=== PATIENT | female | born 1980 | race Caucasian/White ===

== ENCOUNTER 2022-10-17 10:36 | Outpatient (CLI) | payer OTHER, SELFPAY ==
--- NOTE | ~2022-10-17 | MM_ITS ---
EXAMINATION: MM scrn omayra implant BI w gregg HISTORY: Screening mammogram TECHNIQUE: Craniocaudal and mediolateral oblique 3-D tomosynthesis images with implant displacement a nd synthetic 2-D images were generated. Craniocaudal and mediolateral oblique views of the breasts wi thout implant displacement were obtained using full field digital mammography. CAD analysis was submi tted and interpreted. COMPARISON: 03/14/2018 BREAST PARENCHYMAL COMPOSITION: There are scattered areas of fibroglandular density. FINDINGS: There is no evidence of suspicious mass, calcification, or architectural distortion to sugg est malignancy in either breast. There has been no suspicious interval change. IMPRESSION: 1. No mammographic evidence of malignancy. 2. Recommend routine screening mammography in one year. BI-RADS Category 1: Negative Reviewed, dictated and finalized at location A. H COORDINATOR
== END 2022-10-17 10:37 | disposition home or self-care (01) ==
LOC: ANHIMG 10:38
PROVIDERS: PCP Physician Assistant; Visit Provider Obstetrics & Gynecology
DX: Z12.31 Encounter for screening mammogram for malignant neoplasm of breast (principal); Z98.82 Breast implant status
CPT/HCPCS: 77063; 77067

== ENCOUNTER 2024-04-29 14:10 | Outpatient (CLI) | payer OTHER, SELFPAY ==
--- NOTE | ~2024-04-29 | MM_ITS ---
EXAMINATION: MM scrn omayra implant BI w gregg HISTORY: Screening mammogram TECHNIQUE: Craniocaudal and mediolateral oblique 3-D tomosynthesis images with implant displacement a nd synthetic 2-D images were generated. Craniocaudal and mediolateral oblique views of the breasts wi thout implant displacement were obtained using full field digital mammography. CAD analysis was submi tted and interpreted. COMPARISON: Comparison to multiple prior studies sequentially, with oldest reviewed study dated 04/2022. BREAST PARENCHYMAL COMPOSITION: The breasts are heterogeneously dense, which may obscure small masses . FINDINGS: There is no evidence of suspicious mass, calcification, or architectural distortion to sugg est malignancy in either breast. There has been no suspicious interval change. IMPRESSION: 1. No mammographic evidence of malignancy. 2. Recommend routine screening mammography in one year. BI-RADS Category 1: Negative Reviewed, dictated and finalized at location B.
== END 2024-04-29 14:11 | disposition home or self-care (01) ==
LOC: ANHIMG 14:11
PROVIDERS: PCP Physician Assistant; Visit Provider Obstetrics & Gynecology
DX: Z12.31 Encounter for screening mammogram for malignant neoplasm of breast (principal)
CPT/HCPCS: 77063; 77067

== ENCOUNTER 2025-09-07 15:22 | Outpatient (CLI) | payer OTHER, SELFPAY ==
--- NOTE | ~2025-09-07 | MM_ITS ---
EXAMINATION: MM scrn omayra implant BI w gregg HISTORY: Screening mammogram TECHNIQUE: Craniocaudal and mediolateral oblique 3-D tomosynthesis images with implant displacement and synthetic 2-D images were generated. Craniocaudal and mediolateral oblique views of the breasts without implant displacement were obtained using full field digital mammography. CAD analysis was submitted and interpreted. COMPARISON: Comparison to multiple prior studies sequentially, with oldest reviewed study dated 03/14/2018. BREAST PARENCHYMAL COMPOSITION: Dense: The breasts are heterogeneously dense, which may obscure small masses FINDINGS: There is no evidence of suspicious mass, calcification, or architectural distortion to suggest malignancy in either breast. There has been no suspicious interval change. IMPRESSION: 1. No mammographic evidence of malignancy. 2. Recommend routine screening mammography in one year. BI-RADS Category 1: Negative Reviewed, dictated and finalized at location B.
--- OUTSIDE RECORDS SUMMARY | 2025-09-07 16:53 | XMS_ITS | Data Portability ---
Author Organization [facility] MALAZulma Address [address] [facility] [place] [address] Care Team Providers Care Manager Monitoring Name Role Phone BELLAADAXAVIER [employer] Assessment Encounter Date Assessment Date Assessment LastModified by Organization Details LastModified Time 03/28/2024 03/28/2024 Mammogram is due, she has one scheduled for june. pap smear UTD no fam hx colon cancer. eye exam and dental UTD. Not available 03/28/2024 09:25:03 05/30/2024 05/30/2024 lead pressman roto gravure printing exam benign. doing well on oCPs. Did mammogram. not too much pre-teen girl drama with her girls steroid cream for psoriasis, continue derm f/u Not available 05/30/2024 12:29:40 10/01/2024 10/01/2024 Mammogram UTD 04-29-24 pap smear UTD no fam hx colon cancer. eye exam and dental UTD. Not available 10/01/2024 10:08:04 05/19/2025 05/19/2025 Mammogram scheduled. pap smear UTD no fam hx colon cancer. eye exam and dental UTD. Not available 05/19/2025 14:51:08 07/03/2025 07/03/2025 lead pressman roto gravure printing exam benign pap next year Not available 07/03/2025 14:18:58 Plan of Treatment Reminders Order Date Submit Date Provider Last Modified By Organization Details Last Modified Time Details Appointments ANY 15 2025 08:30REBECCA Ann Not available Not available Not available Lab TSH + free T4, serum 2024 025 [email or web address] [facility], [address], [place], [address], 05/19/2025 14:51:09 HbA1c (hemog lobin A1c), blood 2024 025 [email or web address] [facility], [address], [place], [address], 05/19/2025 14:51:09 insuli n, serum 2024 025 [email or web address] [facility], [address], [place], [address], 05/19/2025 14:51:09 lipid panel, serum 2024 025 [email or web address] [facility], [address], [place], [address], 05/19/2025 14:51:09 CMP, serum or plasma 2024 025 [email or web address] [facility], [address], [place], [address], 05/19/2025 14:51:09 CBC w/ auto diff 2024 025 [email or web address] [facility], [address], [place], [address], 05/19/2025 14:51:09 TSH + free T4, serum 2023 024 KAMAR Calvo, [address], [place], [address], 10/05/2024 12:36:07 HbA1c (hemog lobin A1c), blood 2023 024 KAMAR Calvo, [address], [place], [address], 10/05/2024 12:36:10 insuli n, serum 2023 024 KAMAR Lab[facility], [address], [place], [address], 10/05/2024 12:36:11 lipid panel, serum 2023 024 KAMAR Calvo, [address], [place], [address], 10/05/2024 12:36:08 CMP, serum or plasma 2023 024 KAMAR Calvo, [address], [place], [address], 10/05/2024 12:36:09 CBC w/ auto diff 2023 024 KAMAR Calvo, [address], [place], [address], 10/05/2024 12:36:12 HbA1c (hemog lobin A1c), blood 2023 024 [email or web address] [facility], [address], [place], [address], 12/02/2024 13:09:38 lipid panel, serum 2023 024 [email or web address] [facility], [address], [place], [address], 12/02/2024 13:09:38 CMP, serum or plasma 2023 024 [email or web address] [facility], [address], [place], [address], 12/02/2024 13:09:38 insuli n, serum 2023 024 [email or web address] [facility], [address], [place], [address], 12/02/2024 13:09:38 TSH + free T4, serum 2023 024 [email or web address] [facility], [address], [place], [address], 12/02/2024 13:09:38 T3, free, serum or plasma 2023 024 [email or web address] [facility], [address], [place], [address], 12/02/2024 13:09:39 Referral None record ed. Procedures None record ed. Surgeries None record ed. Imaging MAMMO, screen ing, digita l, bilate ral [address], [place], [address], 08/25/2025 13:26:29 Medication Orders Estary lla 0.25 mg-0.0 35 mg tablet 2023 024 [id number], [address] [facility], [place], [place], [id number], 05/30/2024 12:29:49 Zepbou nd 2.5 mg/0.5 mL subcut aneous pen inject or 2023 024 [id number], [address], [place], [place], [id number], 08/08/2024 18:01:31 Patient TargetsNo targets recorded. Patient Instructions Encounter Date Encounter Id Patient Instructions Last Modified By Organization Details Last Modified Time 03/28/2024 [id number] A healthy lifestyle: care instructions Not available 03/28/2024 13:36:11 05/30/2024 [id number] psoriasis: care instructions Not available 05/30/2024 12:29:41 07/03/2025 [id number] mammogram: about this test Not available 07/03/2025 14:08:52 Reason for Referral None Reported. Results Created Date Observation Date Name Description Value Unit Range Abnormal Flag Note LastModifiedBy Organization Detail LastModifiedTime 10/03/2010/04/2024 TSH+F REE T4 TSH 1.240 uIU/m L 0.450- 4.500 Not Available [facility] ([facility]) [address] [facility], [place], [address], 10/05/2024 12:36:07 10/03/2010/04/2024 TSH+F REE T4 T4,free(dire ct) 1.21 NG/dL 0.82-1 .77 Not Available [facility] ([facility]) [address] [facility], [place], [address], 10/05/2024 12:36:07 10/03/2010/04/2024 LIPID PANEL WITH LDL/H DL RATIO cholesterol, total 205 mg/dL 100-19 9 above high normal Not Available [facility] ([facility]) [address] [place], [address], 10/05/2024 12:36:08 10/03/2010/04/2024 LIPID PANEL WITH LDL/H DL RATIO triglyceride s 88 mg/dL 0-149 Not Available [facility] ([facility]) [address] [place], [address], 10/05/2024 12:36:08 10/03/2010/04/2024 LIPID PANEL WITH LDL/H DL RATIO HDL cholesterol 56 mg/dL >39 Not Available [facility] ([facility]) [address] [place], [address], 10/05/2024 12:36:08 10/03/20 24 10/04/2024 LIPID PANEL WITH LDL/H DL RATIO VLDL cholesterol donita 16 mg/dL 5-40 Not Available [facility] ([facility]) [address] [facility], [place], [address], 10/05/2024 12:36:08 10/03/20 24 10/04/2024 LIPID PANEL WITH LDL/H DL RATIO LDL chol calc ([facility]) 133 mg/dL 0-99 above high normal Not Available [facility] ([facility]) [address] [facility], [place], [address], 10/05/2024 12:36:08 10/03/20 24 10/04/2024 LIPID PANEL WITH LDL/H DL RATIO LDL/HDL ratio 2.4 ratio 0.0-3. 2 LDL/H DL Ratio Men Women 1/2 Avg.R isk 1.0 1.5 Avg.R isk 3.6 3.2 2X Avg.R isk 6.2 5.0 3X Avg.R isk 8.0 6.1 Not Available [facility] ([facility]) [address] [place], [address], 10/05/2024 12:36:08 10/03/20 24 10/04/2024 COMP. METAB OLIC PANEL (14) glucose 79 mg/dL 70-99 Not Available [facility] ([facility]) [address] [place], [address], 10/05/2024 12:36:09 10/03/20 24 10/04/2024 COMP. METAB OLIC PANEL (14) BUN 12 mg/dL 6-24 Not Available [facility] ([facility]) [address] [place], [address], 10/05/2024 12:36:09 10/03/20 24 10/04/2024 COMP. METAB OLIC PANEL (14) creatinine 0.88 mg/dL 0.57-1 .00 Not Available [facility] ([facility]) [address] [place], [address], 10/05/2024 12:36:09 10/03/20 24 10/04/2024 COMP. METAB OLIC PANEL (14) eGFR 84 mL/mi n/1.7 3 >59 Not Available [facility] ([facility]) [address] [facility], [place], [address], 10/05/2024 12:36:09 10/03/20 24 10/04/2024 COMP. METAB OLIC PANEL (14) BUN/creatini ne ratio 14 -23 Not Available [facility] ([facility]) [address] [facility], [place], [address], 10/05/2024 12:36:09 10/03/20 24 10/04/2024 COMP. METAB OLIC PANEL (14) sodium 136 mmol/ L 134-14 4 Not Available [facility] ([facility]) [address] [facility], [place], [address], 10/05/2024 12:36:09 10/03/20 24 10/04/2024 COMP. METAB OLIC PANEL (14) potassium 4.4 mmol/ L 3.5-5. 2 Not Available [facility] ([facility]) [address] [facility], [place], [address], 10/05/2024 12:36:09 10/03/20 24 10/04/2024 COMP. METAB OLIC PANEL (14) chloride 101 mmol/ L 96-106 Not Available [facility] ([facility]) [address] [facility], [place], [address], 10/05/2024 12:36:09 10/03/20 24 10/04/2024 COMP. METAB OLIC PANEL (14) carbon dioxide, total 22 mmol/ L 20-29 Not Available [facility] ([facility]) [address] [place] [place], [address], 10/05/2024 12:36:09 10/03/20 24 10/04/2024 COMP. METAB OLIC PANEL (14) calcium 9.9 mg/dL 8.7-10 .2 Not Available [facility] ([facility]) [address] [place], [address], 10/05/2024 12:36:09 10/03/20 24 10/04/2024 COMP. METAB OLIC PANEL (14) protein, total 7.4 g/dL 6.0-8. 5 Not Available [facility] ([facility]) [address] [place], [address], 10/05/2024 12:36:09 10/03/20 24 10/04/2024 COMP. METAB OLIC PANEL (14) albumin 4.2 g/dL 3.9-4. 9 Not Available [facility] ([facility]) [address] [place], [address], 10/05/2024 12:36:09 10/03/20 24 10/04/2024 COMP. METAB OLIC PANEL (14) globulin, total 3.2 g/dL 1.5-4. 5 Not Available [facility] ([facility]) [address] [place], [address], 10/05/2024 12:36:09 10/03/20 24 10/04/2024 COMP. METAB OLIC PANEL (14) bilirubin, total 0.4 mg/dL 0.0-1. 2 Not Available [facility] ([facility]) [address] [place], [address], 10/05/2024 12:36:09 10/03/20 24 10/04/2024 COMP. METAB OLIC PANEL (14) alkaline phosphatase 86 IU/L 44-121 Not Available [facility]) [address] [place], [address], 10/05/2024 12:36:09 10/03/20 24 10/04/2024 COMP. METAB OLIC PANEL (14) AST (SGOT) 18 IU/L 0-40 Not Available [facility] ([facility]) [address] [place], [address], 10/05/2024 12:36:09 10/03/2010/04/2024 COMP. METAB OLIC PANEL (14) ALT (SGPT) 10 IU/L 0-32 Not Available [facility] ([facility]) [address] [facility], [place], [address], 10/05/2024 12:36:09 10/03/2010/04/2024 HEMOG LOBIN A1C hemoglobin A1C 5.5 % 4.8-5. 6 Predi abete s: 5.7 - 6.4 Diabe todd: >6.4 Glyce ryne contr ol for adult s with diabe todd: <7.0 Not Available [facility] ([facility]) [address] [facility], [place], [address], 10/05/2024 12:36:10 10/03/2010/05/2024 INSUL IN insulin 6.6 uIU/m L 2.6-24 .9 Not Available [facility] ([facility]) [address] [facility], [place], [address], 10/05/2024 12:36:11 10/03/2010/04/2024 CBC WITH DIFFE RENTI AL/PL ATELE T WBC 7.1 x10e3 /uL 3.4-10 .8 Eff ectiv e Decem michele 2023 profi elfego [id number] WBC will be made* * non-o rdera ble as a stand -essence e order code. Not Available [facility] ([facility]) [address] [facility], [place], [address], 10/05/2024 12:36:12 10/03/2010/04/2024 CBC WITH DIFFE RENTI AL/PL ATELE T RBC 4.56 x10e6 /uL 3.77-5 .28 Not Available [facility] ([facility]) [address] [place], [address], 10/05/2024 12:36:12 10/03/2010/04/2024 CBC WITH DIFFE RENTI AL/PL ATELE T hemoglobin 14.2 g/dL 11.1-1 5.9 Not Available [facility] ([facility]) [address] [facility], [place], [address], 10/05/2024 12:36:12 10/03/2010/04/2024 CBC WITH DIFFE RENTI AL/PL ATELE T hematocrit 42.6 % 34.0-4 6.6 Not Available [facility] ([facility]) [address] [place], [address], 10/05/2024 12:36:12 10/03/2010/04/2024 CBC WITH DIFFE RENTI AL/PL ATELE T MCV 93 fL 79-97 Not Available [facility] ([facility]) [address] [place], [address], 10/05/2024 12:36:12 10/03/2010/04/2024 CBC WITH DIFFE RENTI AL/PL ATELE T MCH 31.1 pg 26.6-3 3.0 Not Available [facility] ([facility]) [address] [place], [address], 10/05/2024 12:36:12 10/03/2010/04/2024 CBC WITH DIFFE RENTI AL/PL ATELE T MCHC 33.3 g/dL 31.5-3 5.7 Not Available [facility] ([facility]) [address] [place], [address], 10/05/2024 12:36:12 10/03/2010/04/2024 CBC WITH DIFFE RENTI AL/PL ATELE T RDW 12.5 % 11.7-1 5.4 Not Available [facility] ([facility]) [address] [place], [address], 10/05/2024 12:36:12 10/03/2010/04/2024 CBC WITH DIFFE RENTI AL/PL ATELE T platelets 382 x10e3 /uL 150-45 0 Not Available [facility] ([facility]) [address] [facility], [place], [address], 10/05/2024 12:36:12 10/03/2010/04/2024 CBC WITH DIFFE RENTI AL/PL ATELE T neutrophils 75 % notest ab. Not Available [facility] ([facility]) [address] [facility], [place], [address], 10/05/2024 12:36:12 10/03/2010/04/2024 CBC WITH DIFFE RENTI AL/PL ATELE T lymphs 16 % notest ab. Not Available [facility] ([facility]) [address] [facility], [place], [address], 10/05/2024 12:36:12 10/03/2010/04/2024 CBC WITH DIFFE RENTI AL/PL ATELE T monocytes 6 % notest ab. Not Available [facility] ([facility]) [address] [facility], [place], [address], 10/05/2024 12:36:12 10/03/20 24 10/04/2024 CBC WITH DIFFE RENTI AL/PL ATELE T eos 2 % notest ab. Not Available [facility] ([facility]) [address] [place], [address], 10/05/2024 12:36:12 10/03/20 24 10/04/2024 CBC WITH DIFFE RENTI AL/PL ATELE T basos 1 % notest ab. Not Available [facility] ([facility]) [address] [facility], [place], [address], 10/05/2024 12:36:12 10/03/20 24 10/04/2024 CBC WITH DIFFE RENTI AL/PL ATELE T neutrophils (absolute) 5.4 x10e3 /uL 1.4-7. 0 Not Available [facility] ([facility]) [address] [facility], [place], [address], 10/05/2024 12:36:12 10/03/20 24 10/04/2024 CBC WITH DIFFE RENTI AL/PL ATELE T lymphs (absolute) 1.1 x10e3 /uL 0.7-3. 1 Not Available [facility] ([facility]) [address] [facility], [place], [address], 10/05/2024 12:36:12 10/03/2010/04/2024 CBC WITH DIFFE RENTI AL/PL ATELE T monocytes(ab solute) 0.4 x10e3 /uL 0.1-0. 9 Not Available [facility] ([facility]) [address] [facility], [place], [address], 10/05/2024 12:36:12 10/03/20 24 10/04/2024 CBC WITH DIFFE RENTI AL/PL ATELE T eos (absolute) 0.2 x10e3 /uL 0.0-0. 4 Not Available [facility] ([facility]) [address] [facility], [place], [address], 10/05/2024 12:36:12 10/03/2010/04/2024 CBC WITH DIFFE RENTI AL/PL ATELE T baso (absolute) 0.1 x10e3 /uL 0.0-0. 2 Not Available [facility] ([facility]) [address] [place], [address], 10/05/2024 12:36:12 10/03/2010/04/2024 CBC WITH DIFFE RENTI AL/PL ATELE T immature granulocytes 0 % notest ab. Not Available [facility] ([facility]) [address] [place], [address], 10/05/2024 12:36:12 10/03/20 24 10/04/2024 CBC WITH DIFFE RENTI AL/PL ATELE T immature grans (abs) 0.0 x10e3 /uL 0.0-0. 1 Not Available [facility] ([facility]) [address], [place], [address], 10/05/2024 12:36:12 04/29/20 24 04/29/2024 MAMMO , scree carlos, digit al, bilat eral No observ ation record ed. [email or web address] [facility] [address], [place], [address], 04/30/2024 23:08:53 Result Notes None recorded. Problems Name Problem SNOMED Code Status Onset Date Resolution Date Notes Provider Name and Address Organization Details Recorded Time Obesity 537748169 Active 2023 REBECCA Deras Attn: Lea tenorio,[address] [place], [address], [place] - [facility] 13:36:01 Mixed anxiety and depressive disorder 440417469 Active 2023 REBECCA Deras Attn: Lea g,[address] [place], [address], [place] [facility] 13:36:07 Prediabetes 238291188 Active 2023 REBECCA Deras Attn: Lea g,[address] [place], [address], [place] [facility] 13:36:09 Body mass index 25-29 - overweight 877139651 Active 2023 Gabriele Johnson MA null, [place] [facility] 09:46:48 Long-term drug therapy Active 2023 REBECCA Deras Attn: Lea g,[address] [place], [address], [place] [facility] 00:09:52 Body mass index 20-24 - normal 588515858 Active 2024 REBECCA Deras Attn: Lea tenorio,[address], [place], [address], [facility] [place] 14:50:56 Problem Notes None recorded. Procedures Surgical History Date Name Laterality Status Provider Name and Address Organization Details Recorded Time 05/12/20 25 Date of Last Pap Smear completed Gabriele Johnson MA [facility] 05/19/2025 14:18:28 04/29/20 24 Most Recent Mammogram completed SEAMUS Bangura [facility] 05/30/2024 12:04:27 04/04/20 18 augmentation mammoplasty completed Patricia Pepper MA [facility] 01/07/2019 12:13:23 Gastric Bypass completed Gabriele Johnson MA [facility] 03/28/2024 11:31:18 Imaging Results None recorded. Procedure Notes None recorded. Medical Equipment None Reported. Allergies No known drug allergies Medications Name Sig Start Date Stop Date Status Note LastModified by Organization Details LastModified Time carisoprodo l 350 mg tablet 05/11 completed Not Available Not Available Not Available azithromyci n 250 mg tablet 03/03 completed Not Available Not Available Not Available fluconazole 150 mg tablet 03/03 completed Not Available Not Available Not Available ondansetron HCl 4 mg tablet 03/03 completed Not Available Not Available Not Available spironolact one 100 mg tablet TAKE 1 TABLET BY MOUTH DAILY active Not Available Not Available No t Available Tamiflu 75 mg capsule 03/03 completed Not Available Not Available Not Available sulfamethox azole 800 mg-trimetho prim 160 mg tablet TAKE 1 TABLET BY MOUTH EVERY 12 HOURS 03/03 completed Not Available Not Available Not Available oxycodone-a cetaminophe n 5 mg-325 mg tablet 03/03 completed Not Available Not Available Not Available amoxicillin 875 mg tablet TAKE 1 TABLET BY MOUTH EVERY 12 HOURS 03/28 completed Not Available Not Available Not Available alprazolam 0.25 mg tablet TK 1 T PO BID PRN 05/11 completed Not Available Not Available Not Available sertraline 25 mg tablet 03/03 completed Not Available Not Available Not Available hydrocortis one 2.5 % topical ointment Apply by topical route for 7 days. active prn per pt Not Available Not Available Not Available sertraline 50 mg tablet TAKE 1 AND 1/2 TABLETS BY MOUTH DAILY active Not Available Not Available No t Available Lomedia 24 Fe 1 mg-20 mcg (24)/75 mg (4) tablet Take 1 tablet every day by oral route for 28 days. 03/03 completed Not Available Not Available Not Available Aczone 7.5 % topical gel with pump 05/11 completed Not Available Not Available Not Available Aziza 0.25 mg-0.035 mg tablet TAKE 1 TABLET BY MOUTH EVERY DAY active Not Available Not Available No t Available Vtama 1 % topical cream APPLY A THIN LAYER TO THE AFFECTED AREA(S) BY TOPICAL ROUTE ONCE DAILY active Not Available Not Available No t Available Zepbound 5 mg/0.5 mL subcutaneou s pen injector ADMINISTE R 5 MG UNDER THE SKIN EVERY WEEK 08/08 completed Not Available Not Available Not Available Zepbound 2.5 mg/0.5 mL subcutaneou s pen injector ADMINISTE R 2.5 MG UNDER THE SKIN EVERY WEEK 08/08 completed Not Available Not Available Not Available Zepbound 7.5 mg/0.5 mL subcutaneou s pen injector ADMINISTE R 7.5 MG UNDER THE SKIN EVERY WEEK 2024 active PRN Not Available Not Available Not Avai lable Zepbound 7.5 mg/0.5 mL subcutaneou s solution INJECT 0.5 ML (7.5 MG) UNDER THE SKIN ONCE WEEKLY (0.5ML= 50 UNITS) 2024 active Not Available Not Available Not Avai lable Vitals Date Recorded Respiratory rate Systolic And Diastolic Provider Name and Address Organization Details Last Updated DateTime 03/28/2024 18 /min 118/80 mm[Hg] REBECCA Deras Attn: Accounting,[address] [place], [address], [place] - [facility] 03/28/2024 09:25:09 Date Recorded Body height Body mass index (BMI) Body weight Oxygen saturation Oxygen saturation in Arterial blood by Pulse oximetry Heart rate Systolic And Diastolic Provider Name and Address Organization Details Last Updated DateTime 4 162.56 cm 33.7 kg/m2 51510.8 2 g 98 % 98 % 100 /min 126/82 mm[Hg] Gabriele Johnson MA [facility] 4 09:10:19 Date Recorded Systolic And Diastolic Provider Name and Address Organization Details Last Updated DateTime 05/19/2025 110/70 mm[Hg] REBECCA Deras Attn: Accounting,[address] [place], [address], [facility] 05/19/2025 14:49:53 Date Recorded Body height Body mass index (BMI) Body weight Respiratory rate Oxygen saturation Oxygen saturation in Arterial blood by Pulse oximetry Heart rate Systolic And Diastolic Provider Name and Address Organization Details Last Updated DateTime 162.56 cm 23.5 kg/m2 79838.1 5 g 18 /min 100 % 100 % 61 /min 116/82 mm[Hg] Gabriele Johnson MA [facility] 14:20:01 Date Recorded Body height Body mass index (BMI) Body weight Systolic And Diastolic Provider Name and Address Organization Details Last Updated DateTime 05/30/2024 162.56 cm 31.4 kg/m2 21959.83 g 128/86 mm[Hg] Alejandra Rangel [facility] 05/30/2024 12:11:07 Date Recorded Body height Body mass index (BMI) Body weight Systolic And Diastolic Provider Name and Address Organization Details Last Updated DateTime 07/03/2025 162.56 cm 25.4 kg/m2 17808.96 g 128/78 mm[Hg] Alejandra Rangel [facility] 07/03/2025 14:06:10 Date Recorded Body height Body mass index (BMI) Body weight Oxygen saturation Oxygen saturation in Arterial blood by Pulse oximetry Heart rate Respiratory rate Systolic And Diastolic Provider Name and Address Organization Details Last Updated DateTime 162.56 cm 27.5 kg/m2 79286.7 8 g 99 % 99 % 82 /min 18 /min 116/82 mm[Hg] Gabriele Johnson MA [facility] 09:48:15 Social History Question Answer Notes LastModified by Organizat ion Details LastModified Time Tobacco Smoking Status Never Smoker Mamie Lopes [facility], [place] - [facility] 03/03/2022 14:19:05 Do You Have An Advance Directive? No Information not available 03/28/2024 Are You Blind Or Do You Have Difficulty Seeing? No Contacts Information not available 03/28/2024 What Is Your Level Of Caffeine Consumption? Moderate Coffee Information not available 03/28/2024 In The 14 Days Before Symptom Onset, Have You Had Close Contact With A Laboratory-confir med COVID-19 While That Case Was Ill? No [email or web address] Information not available 03/03/2022 In The 14 Days Before Symptom Onset, Have You Had Close Contact With A Person Who Is Under Investigation For COVID-19 While That Person Was Ill? No [email or web address] Information not available 03/03/2022 Have You Been To An Area Known To Be High Risk For COVID-19? No [email or web address] Information not available 03/03/2022 Are You Deaf Or Do You Have Serious Difficulty Hearing? No Information not available 03/28/2024 What Type Of Diet Are You Following? REGULAR Information not available 03/28/2024 Are There Any Guns Present In Your Home? No Information not available 03/28/2024 What Was The Date Of Your Most Recent Tobacco Screening? 05/19/2025 Information not available 05/19/2025 How Many Children Do You Have? 2 Information not available 05/25/2015 What Is Your Relationship Status? Information not available 05/25/2015 Do You Use Your Seat Belt Or Car Seat Routinely? Yes Information not available 03/03/2022 Do You Have Smoke And Carbon Monoxide Detectors In Your Home? Yes Information not available 03/28/2024 Do You Use Sunscreen Routinely? Yes Information not available 03/28/2024 Has Tobacco Cessation Counseling Been Provided? Yes Information not available 03/27/2024 On What Date Was Tobacco Cessation Counseling Provided? 05/19/2025 Information not available 05/19/2025 Sex: Female Functional Status Question Answer Note LastModified by Organizat ion Details LastModified Time Do you use any illicit or recreational drugs? No Information not available 03/28/2024 Do you or have you ever used any other forms of tobacco or nicotine? No Information not available 03/03/2022 What is your level of alcohol consumption? Occasional Information not available 03/28/2024 Are you currently employed? Yes Information not available 10/01/2024 Are you able to care for yourself independently? Yes Information not available 03/28/2024 What is your exercise level? None Information not available 03/28/2024 Mental Status None recorded. Family History Relationship Description Onset Age of this Age Resolved Age Notes LastModified by Organization Details LastModified Time Sister Asthma [email or web address] Not available 03/28/2024 11:31:35 Mother Dementia [email or web address] Not availabl e 03/28/2024 11:31:41 Mother Depressive disorder [email or web address] Not available 2023 11:31:47 Father Hypertensive disorder [email or web address] Not available 2023 11:31:55 Notes:no breast ca hx Medical History Condition Response Coronary Artery Disease N Other N High Blood Pressure N Atrial Fibrillation N Kidney or Bladder Problems N Thyroid Problems N GI Problems N Depression Y COPD N Blood Clots N Skin Problems N Anemia N Heart Attack (MD) N Anxiety Disorder Y Diabetes N Muscle, Joint, or Bone Problems N Seizures/Epilepsy N Acid Reflux (GERD) N Cancer N Stroke N Asthma N Allergies N High Cholesterol N Hepatitis N Liver Disease N Headaches N Osteoporosis N Heart Failure N Gynecological History Statement/Question Response Abnormal Pap N Flow Light Date of LMP 09/23/2024 STIs/STDs N HPV Vaccine N Duration of Flow (days) 3 Most Recent Mammogram 04/29/2024 Current Control Method BCPs Frequency of Cycle (Q days) Sexually Active? Y Menses Monthly Y Date of Last Pap Smear 05/12/2025 Sexual Problems? N LMP Approximate Obstetrics History GPAL:G 2 P 2 0 0 2 Type Value Full Term 2 Living 2 Total 2 Immunizations Vaccine Type Date Status Note Provider Nam e and Address Organization Details Recorded Time COVID-19, mRNA, LNP-S, PF, 100 mcg/0.5mL dose or 50 mcg/0.25mL dose 12/02/2020 completed Alejandra Rangel RMA null, [place] [facility] 05/11/2023 11:11:43 COVID-19, mRNA, LNP-S, PF, 100 mcg/0.5mL dose or 50 mcg/0.25mL dose 12/31/2020 completed Alejadnra Rangel R[place] [facility] 05/11/2023 11:11:43 Influenza, split virus, trivalent, PF 10/08/2017 completed Alejandra Rangel R[place] [facility] 05/11/2023 11:11:43 Influenza, split virus, trivalent, PF 10/24/2016 completed Alejandra Rangel R[place] [facility] 05/11/2023 11:11:43 Influenza, split virus, quadrivalent, PF 08/23/2018 completed Alejandra Rangel R[place] [facility] 05/11/2023 11:11:43 Past Encounters Encounter ID Performer Location Encounter Start Date Encounter Closed Date Diagnosis/Indication Diagnosis SNOMED-CT Code Diagnosis ICD10 Code Diagnosis IMO Codes Diagnosis Note [id number] [facility] [address] [facility] [place] [address] 05/25/2015 15:56:10 05/26/2015 11:56:23 Gynecologic examination [id number] [facility] [address] [facility] [place] [address] 10/02/2016 09:55:20 10/02/2016 14:10:12 Gynecologic examination 59795227 Z01.978 [id number] MD Rehana Maldonado ([facility] 205) [address] [facility] [place] [address] 01/01/2018 11:31:04 01/02/2018 15:01:10 Gynecologic examination 16353078 Z01.419 Body mass index 20-24 - normal 386384315 Z68.20 [id number] MD Rehana Maldonado 14 OB [address] [facility] [address] [place] [address] 01/07/2019 11:31:13 01/07/2019 16:11:06 Gynecologic examination 08783731 Z01.419 Contracept ion care management 256705334 Z30.9 [id number] MD Rehana Maldonado [address] [place] [address] [place] [address] 01/09/2020 10:57:28 01/09/2020 12:11:51 Gynecologic examination 09176888 Z01.223 [id number] MD Rehana Maldonado [address] [place] [address] [place] [address] 02/28/2021 16:32:56 03/01/2021 13:13:28 Gynecologic examination 60520902 Z01.419 Contracept ion care management 856023040 Z30.9 [id number] MD Rehana Maldonado [address] [place] [address] 03/03/2022 13:57:42 03/06/2022 06:20:55 Gynecologic examination 15945608 Z01.419 Screening for malignant neoplasm of breast 167327933 Z12.39 Contracept ion care management 296270586 Z30.9 [id number] MD Rehana Maldonado [address] [place] [address] 05/11/2023 10:57:04 05/12/2023 14:09:27 Contraception care management 613327352 Z30.9 Gynecologi c examination 66939354 Z01.419 Screening for malignant neoplasm of breast 670108875 Z12.39 [id number] [facility] [address] [place] [address] 03/28/2024 08:54:35 03/28/2024 09:59:19 Prediabetes 184508642 R73.03 5.9%. following. a1c due. 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 Body mass index 30+ - obesity 318159335 Z68.33 bmi 33.7. start zepbound injectable therapy. no personal or family hx of Medullary thyroid cancer or MEN conditions . screening insulin and thyroid panel ordered. Cholesterol screening 27 4228837 Z13.220 fasting lipids are due Obesity 072405514 E66.9 discussed healthy diet, exercise, controllin g carbohydra todd and added sugars in the diet [id number] Xavier Bella MD [place] 14 OB 4 [facility] [address] [place] [address] 05/30/2024 11:58:58 06/03/2024 19:46:19 Contraception care management 335997305 Z30.9 Gynecologi c examination 08270531 Z01.419 Psoriasis 9989302 L40.9 [id number] Keanu Borja MD [facility] [employer] [address] [place] [address] 10/01/2024 09:41:27 10/01/2024 13:45:59 Body mass index 25-29 - overweight 431488262 Z68.27 BMI is 27.5 Prediabetes 817658641 R7 3.03 5.9% on last labs. With Zepbound therapy and weight loss we will repeat fasting insulin and an A1c for new lab evaluation Mixed anxi ety and depressive disorder 946169481 F41.8 Drop down to sertraline 50mg daily. Patient has been feeling really well and would like to titrate her medication down. Long-term drug therapy 359621921 Z79.899 CBC and CMP ordered Cholesterol screening 27 9406744 Z13.220 fasting lipids are due Thyroid di sorder screening 437497313 Z13.29 Routine thyroid function testing due [id number] Keanu Borja MD [facility] [employer] [address] [place] [address] 05/19/2025 14:12:44 05/19/2025 15:07:56 Body mass index 20-24 - normal 551878520 Z68.23 97339487 23.5 Prediabetes 247752788 R7 3.03 With Zepbound therapy and weight loss we will repeat fasting insulin and an A1c for new lab evaluation Mixed anxi ety and depressive disorder 611571527 F41.8 Drop down to sertraline 50mg daily. Patient has been feeling really well and would like to titrate her medication down. Long-term drug therapy 165020926 Z79.899 CBC and CMP ordered Cholesterol screening 27 1332185 Z13.220 fasting lipids are due Thyroid di sorder screening 892121981 Z13.29 Routine thyroid function testing due Adult heal th examination 265942462 Z00.00 [id number] wellness completed [id number] MD Fab Maldonaodn 14 OB [address] [facility] [address] [place] [address] 07/03/2025 14:00:03 07/06/2025 12:26:47 Gynecologic examination 53611387 Z01.463 [id number] Screening mammography 24 289305 Z12.31 [id number] Health Concerns Section Related Observation LastModified by Organization Detai ls LastModified Time None Recorded Concern Status LastModified by Organization Details LastModified Time None Recorded Advance Directives Directive N: Payers Insurance Date Sequence Insurance Name Policy Number Policy Jang Covered Member ID Jang Member ID Guarantor Name 07/03/2025 1 [facility] [id number] Veronica Martin [id number] Veronica Martin 10/01/2024 1 [facility] [id number] Bernardino Mario [id number] Veronica Martin Notes Date Note Type Note Provider Name and Address Organization Details Recorded Time 4 text/html Anxiety/DepressionReporte d by Patientpt is taking sertraline 75mg daily and feeling stable overall. no acute c/o. Pt. states that she would like to discuss her sertraline, would like to possibly get off of it, states that she would like to discuss her soreness, would like to discuss weight loss injection states that her blood work has gone up. REBECCA Deras Attn: Accounting,[address] [facility], [place], [address], [place] - [facility] 04/13/2024 20:37:49 4 text/html Annual GYNReported by PatientGenitourinary symptomsFor menstrual cycle, patient reportsnormal menses. For urinary symptoms, patient reportsno hematuriaandno incontinence. For vulva, patient reportsno genital lesion. For vagina, patient reportsnormal vaginal discharge.Breast symptomsFor breast, patient reportsno breast pain,no breast lump, andno nipple discharge.ContraceptionFo r current contraception, patient reportsoral contraceptives.Endocrine symptomsFor sexual complaints, patient reportsno sexual complaints,no pain during intercourse, andnormal libido. For menopausal symptoms, patient reportsno menopausal symptomsandnormal vaginal lubrication.Psychological symptomsFor psychological symptoms, patient reportsno depression,no anxiety, andno pmdd.ROS as noted in the HPI Xavier Bella MD Attn: Accounting,[address] [place], [address], [facility] 05/30/2024 12:29:57 4 text/html Anxiety/DepressionReporte d by Patientpt is taking sertraline 75mg daily and feeling stable overall. no acute c/o. Patient has been on Zepbound therapy for weight loss and has had great response. She does have a history of prediabetes as well and has responded great to injectable therapy REBECCA Deras Attn: Accounting[address] [place], [address], [facility] - [facility] 10/12/2024 00:10:23 5 text/html Anxiety/DepressionReporte d by Patientpt is taking sertraline 75mg daily and feeling stable overall. no acute c/o. Patient has been on Zepbound therapy for weight loss and has had great response. She does have a history of prediabetes as well and has responded great to injectable therapy REBECCA Deras Attn: Accounting,[address] [place], [address], [facility] [place] 06/11/2025 12:05:25 5 text/html Annual GYNReported by PatientGenitourinary symptomsFor menstrual cycle, patient reportsnormal menses. For urinary symptoms, patient reportsno hematuriaandno incontinence. For vulva, patient reportsno genital lesion. For vagina, patient reportsnormal vaginal discharge.Breast symptomsFor breast, patient reportsno breast pain,no breast lump, andno nipple discharge.ContraceptionFo r current contraception, patient reportsoral contraceptives.Endocrine symptomsFor sexual complaints, patient reportsno sexual complaints,no pain during intercourse, andnormal libido. For menopausal symptoms, patient reportsno menopausal symptomsandnormal vaginal lubrication.Psychological symptomsFor psychological symptoms, patient reportsno depression,no anxiety, andno pmdd.ROS as noted in the HPI lost 40 lbs with zepbound, doing great on OCPs girls doing well 11, 13, no period yet for either Xavier Bella MD Attn: Accounting,[address] [place], [address], [place] [facility] 07/03/2025 14:19:14 OBGyn Episode Ob Episode Information Episode Created Date Number of Fetuses Patient Bloodtype Patient rh Status Prepregnancy Weight lbs Domestic Partner Domestic Partner Phone Father Name Modeler Status 04/16/20 15 1 CLOSED Fetus Data First Name Last Name Admitted to NICU Weight (g) Sex Living Outcome Pediatric Complications Fetus ID Race Codes Race Delivery Type 3460.90 [id number] [id number] Vaginal Cam Calculation Initial Cam Date Initial Exam Date Initial Exam Provider Initial Ultrasound Date Last Menstrual Period Date Ultra Sound Weeks Gestation 0 Eighteen To Twenty Week Cam Update Ultra Sound Date Fundal Height At Umbil Quickening Date Ultra Sound Latest Weeks Gestation Final Cam Confirmed By Final Cam Confirmed Date Final Cam Date Ultra Sound Latest Days Gestation 0 0 Menstrual History Last Menstrual Date Menses Monthly On Bcp Conception Prior Menses Frequency Hcg Plus Date Menarche Onset Age Delivery Information Delivery Date Delivery Type Labor Anesthesia Weeks Gestation Incision Type Labor Labor Length Hrs Delivered By Post Complications Tubal Sterilization Discharge Date Comments 3 Dr. Bella Discharge Information Feeding Method Contraceptive Method Maternal HG B and HCT Levels Ob Episode Information Episode Created Date Number of Fetuses Patient Bloodtype Patient rh Status Prepregnancy Weight lbs Domestic Partner Domestic Partner Phone Father Name Modeler Status 04/16/20 15 1 CLOSED Fetus Data First Name Last Name Admitted to NICU Weight (g) Sex Living Outcome Pediatric Complications Fetus ID Race Codes Race Delivery Type 3034.53 [id number] [id number] Vaginal Cam Calculation Initial Cam Date Initial Exam Date Initial Exam Provider Initial Ultrasound Date Last Menstrual Period Date Ultra Sound Weeks Gestation 0 Eighteen To Twenty Week Cam Update Ultra Sound Date Fundal Height At Umbil Quickening Date Ultra Sound Latest Weeks Gestation Final Cam Confirmed By Final Cam Confirmed Date Final Cam Date Ultra Sound Latest Days Gestation 0 0 Menstrual History Last Menstrual Date Menses Monthly On Bcp Conception Prior Menses Frequency Hcg Plus Date Menarche Onset Age Delivery Information Delivery Date Delivery Type Labor Anesthesia Weeks Gestation Incision Type Labor Labor Length Hrs Delivered By Post Complications Tubal Sterilization Discharge Date Comments 1 Dr. Pennington Discharge Information Feeding Method Contraceptive Method Maternal HG B and HCT Levels
== END 2025-09-07 15:23 | disposition home or self-care (01) ==
LOC: ANHFOHIMG 15:23
PROVIDERS: PCP Physician Assistant; Visit Provider Obstetrics & Gynecology
DX: Z12.31 Encounter for screening mammogram for malignant neoplasm of breast (principal)
CPT/HCPCS: 77063; 77067